=== PATIENT | female | born 1945 | race Caucasian/White ===

== ENCOUNTER 2016-04-26 08:16 | Emergency (ER) | payer OTHER ==
[~2016-04-26] VITALS: Ht 170.2 cm; Wt 72.6 kg
[~2016-04-26 08:16] MED LIST: HYDR25TA4 PO
[2016-04-26 11:00] VITALS: BP 130/75
== END 2016-04-26 11:48 | disposition home or self-care (01) ==
LOC: ER 08:16
DX: S00.83XA Contusion of other part of head, initial encounter (principal); S00.12XA Contusion of left eyelid and periocular area, initial encounter; I10 Essential (primary) hypertension; Z79.899 Other long term (current) drug therapy; W01.0XXA Fall on same level from slipping, tripping and stumbling without subsequent striking against object, initial encounter; Y93.01 Activity, walking, marching and hiking; Y99.8 Other external cause status; Y92.480 Sidewalk as the place of occurrence of the external cause
CPT/HCPCS: 70450